=== PATIENT | female | born 1970 | race Caucasian/White ===

== ENCOUNTER 2016-07-04 11:10 | Day surgery (SDC) | payer OTHER ==
[2016-07-02 16:20] LABS: HEMATOCRIT 40.9 % (36.0-48.0); HEMOGLOBIN 13.9 g/dL (12.0-16.0)
[2016-07-02 16:36] LABS: CALCIUM, SERUM 9.6 MG/DL (8.5-10.4); CHLORIDE, SERUM 103 MMOL/L (96-112); CO2 (CARBON DIOXIDE) 26 MMOL/L (24-34); POTASSIUM, SERUM 4.1 MMOL/L (3.5-5.3); SODIUM, SERUM 140 MMOL/L (135-148)
[2016-07-02 16:37] LABS: BUN (BLOOD UREA NITROGEN) 12 MG/DL (6-23); CREATININE 1.34 MG/DL (0.55-1.02); GFR AFRICAN AMERICAN 54 ML/MIN (>=60); GFR NON AFRICAN AMERICAN 47 ML/MIN (>=60); GLUCOSE, SERUM 83 MG/DL (60-99)
--- NOTE | ~2016-07-04 | OP ---
Record Of [facility] [address] [place]. [address] NAME: JACK BLAIR : 66 STATUS : [facility]#: [id number] AGE: 46 ADM/REG DATE : 07/04/16 MR#: [id number] REPORT SERV DATE: 07/18/16 DICTATED BY: EDWIN CALLEJAS DATE: 07/18/16 REPORT STATUS : Draft TRANSCRIBED BY: MODL DATE: 07/18/16 DATE OF PROCEDURE: 07/04/2016 PREOPERATIVE DIAGNOSIS: Arthrofibrosis, right knee. POSTOPERATIVE DIAGNOSIS: Arthrofibrosis, right knee. PROCEDURE: Manipulation under anesthesia, right knee with injection of Marcaine with epinephrine. SURGEON: Edwin Callejas M.D. WEB COMMUNICATIONS SPECIALIST: None. ESTIMATED BLOOD LOSS: Zero. DRAINS: None. COMPLICATIONS: None. INDICATION: A 46-year-old patient, who presented to the office following a right knee arthrotomy with incision and drainage for presumed septic arthrosis. Postoperatively, she had motion difficulty with inability to regain motion through physical therapy. Diagnosis was made of arthrofibrosis. The patient was apprised of diagnosis and recommended options for surgical treatment for evaluation under anesthesia. DESCRIPTION OF PROCEDURE: The patient was identified in the preop holding area. Her operative extremities were marked with YES. The patient then was taken to the PACU area where Anesthesia administered an IV general anesthetic. The patient had manipulation of her right knee under anesthesia. She then had an injection to the right knee with Marcaine with epinephrine, through a posterolateral approach, with Betadine alcohol skin prep. The patient was then awakened. The patient tolerated the procedure well and recovered in the PACU. She was then sent to same-day surgery for discharge to home. She will be followed in the office for her knee motion as well. She will be seen in physical therapy today for maintenance of her motion. EC/MODL Edwin Callejas M.D. / [id number] CC: Record Of [facility] [place] [id number] [place]. [address] NAME: JACK BLAIR : [birth year] STATUS : [facility] PAT#: [id number] AGE: 46 ADM/REG DATE : 07/04/16 MR#: [id number] REPORT SERV DATE: 07/18/16 DICTATED BY: EDWIN CALLEJAS DATE: 07/18/16 REPORT STATUS : Draft TRANSCRIBED BY: MODL DATE: 07/18/16 Arielle Whittaker M.D.
[~2016-07-04 11:10] MED LIST: ADVIL PO; ASTELIN NAS; ASTEPRO0.15 % NAS; BENTYL10 PO; BENTYL20 PO; CAT1 PO; CLONIDINE PO; COVARYX HS PO; COVARYX PO; DIL4TAB PO; EFFEX25 PO; FLEX PO; HYZAAR1 TAB PO; IBU-200200 MG PO; LIPITOR10 PO; LOSARTAN/HCTZ; LOSARTAN/HCTZ PO; LUNESTA2 M1 OR; MOBIC PO; MOBIC15 MG PO; NORV5 PO; NORVASC PO; OMEPRAZOLE PO; OXYCON10 PO; PRILO PO; PRILOSEC40 MG PO; PROAIR HFA INH; Proair Hfa; SUDAFED 30 MG T30 MG OR; TRAZ100 PO; TRAZ50 PO; TRAZODONE PO; UNISOM25 MG PO; VERAMYST27.5 MCG NAS; WELCHOL 625 MG625 MG PO; WELCHOL625 MG OR; WELCHOL625 MG PO; WELLBUTRIN PO; WELLSR150 PO; WELLXL300 PO; XARELTO15 MG PO
== END 2016-07-04 14:35 | disposition home or self-care (01) ==
LOC: SDC 11:10
PROVIDERS: Orthopaedic Surgery
PROC: 3E0U33Z Introduction of Anti-inflammatory into Joints, Percutaneous Approach (ICD-10-PCS; 2016-07-04)
PROC: 0SS Lower Joints, Reposition (ICD-10-PCS; principal; 2016-07-04 12:15)
DX: M24.661 Ankylosis, right knee (principal); I10 Essential (primary) hypertension; K21.9 Gastro-esophageal reflux disease without esophagitis; F32.9 Major depressive disorder, single episode, unspecified; G43.909 Migraine, unspecified, not intractable, without status migrainosus; F17.210 Nicotine dependence, cigarettes, uncomplicated; K58.9 Irritable bowel syndrome, unspecified; Z90.49 Acquired absence of other specified parts of digestive tract; Z98.890 Other specified postprocedural states
CPT/HCPCS: 80048; 85014; 85018; 93005; A9270-GY; J2250; J2405; J3010

== ENCOUNTER 2016-07-23 09:55 | Emergency (ER) | payer OTHER | END 2016-07-23 10:00 | disposition home or self-care (01) | LOC: ER 09:55 | DX: M54.5 Low back pain (principal); M25.561 Pain in right knee; I10 Essential (primary) hypertension; K21.9 Gastro-esophageal reflux disease without esophagitis; F17.200 Nicotine dependence, unspecified, uncomplicated; Z90.710 Acquired absence of both cervix and uterus; Z79.899 Other long term (current) drug therapy; V89.2XXA Person injured in unspecified motor-vehicle accident, traffic, initial encounter | CPT/HCPCS: 72100; 73560-RT; 99284 ==